=== PATIENT | female | born 1930 | race Caucasian/White ===

== ENCOUNTER 2017-04-24 00:27 | Inpatient (IN) ==
[2017-04-24 02:24] LABS: Basophils % 0.3 % (0.0-0.8); Eosinophils # 0.1 10*3/uL (0.0-0.87); Eosinophils % 1.4 % (0.00-10.9); Hematocrit 35.8 VOL% (35.7-47.0); Hemoglobin 11.7 GM/DL (12.0-16.0); Immature Granulocytes % 0.3 %; Immature Granulocytes Absolute 0.03 #; Lymphocytes # 2.3 10*3/uL (1.4-4.0); Lymphocytes % 25.4 % (21.3-54.2); Mean Corpuscular HGB Conc 32.7 GM/DL (32-36); Mean Corpuscular Hemoglobin 29 PG (27-34); Mean Corpuscular Volume 89.1 FL (87-102); Mean Platelet Volume 11.2 FL (9.6-12.0); Monocytes # 1.1 10*3/uL (0.11-0.8); Monocytes % 11.8 % (1.7-12.7); Neutrophils # 5.5 10*3/uL (1.4-7.4); Neutrophils % 60.8 % (38.7-73.9); Platelet Count 199 T/CUMM (130-400); Red Blood Count 4.02 MC/CUMM (3.8-5.5); Red Cell Distribution Width 14.5 % (9.3-17.3)
[2017-04-24 02:29] LABS: PT Patient Result 10.7 SECS
[2017-04-24 02:41] LABS: Calcium 9.7 MG/DL (8.5-10.1); Osmolality,Calculated 281.4 MOS/KG (273-304)
--- NOTE | 2017-04-24 04:34 | Emergency Department Note ---
Desire Mccullough Hilary, am scribing for, and in the presence of, Shayla Burgos DO 01:50. ILoretta Whitney, DO, personally performed the services described in this documentation, ascribed by Mayra Phipps in my presence, and it is both accurate and complete 245 . Arrival - Arrival Chief Complaint: GI Bleed/Rectal Stated Complaint: rectal bleeding ED Nursing Triage Note: c/c rectal bleeding started tonight. Has had rectal bleeding in past from polyps. Pt states large amounts of bright red blood. Pt states "gushing out" Mode of Arrival: Wheelchair Limitations: No Limitations Source: Patient, RN Notes Reviewed Time Seen by Provider: 04/24/17 01:23 - History of Present Illness HPI Narrative: Pt is a 86 y/o presenting to the ED with c/o GI bleed which onset today. Pt states that she has had 2 episodes of blood in her stool where it is "gushing out" and fills the toilet. She has had this happen before about a year ago and was told that she had a polyp. She confirms hemorrhoids in the past and present , bright red blood in her stool and dizziness but denies vomiting or abdominal pain. No other complaints or problems stated in the ED. Onset (ago): hour(s) Consistency: constant Severity: mild, similar to previous episodes Severity scale (1-10): 1 Allergies/Adverse Reactions: Allergies Allergy/AdvReac Type Severity Reaction Status Date / Time penicillin G Allergy Unknown/Unable Verified 04/24/17 00:41 to obtain Review of System - Review of System 12 point system: reviewed and no additional remarkable complaints except as stated - Review of System Constitutional: Present: weakness, other (Dizziness). Absent: fever Gastrointestinal: Present: hematochezia. Absent: abdominal pain, nausea, vomiting Neurological: Present: weakness Medical,Surgical,& Family Hx - Medical History Cardio: History of: Hypertension Gastrointestinal: History of: Gastrointestinal Bleed, Polyps, GI Problems - Surgical History HEENT Surgeries: Surgical HX of: Tonsilectomy & Adenoidectomy Abdominal Surgeries: Surgical HX of: Cholecystectomy Reproductive Surgeries: Surgical HX of;: Hysterectomy Patient denies;: Breast Surgery - Social History Smoking Status: Current every day smoker Frequency of Alcohol Use: None Type of Drug Use: None Exam Vital Signs: Vital Signs Temperature 99.1 F 04/24/17 00:32 Pulse Rate 90 04/24/17 00:32 Respiratory Rate 18 04/24/17 00:32 Blood Pressure 173/107 04/24/17 00:32 O2 Sat by Pulse Oximetry 94 L 04/24/17 00:32 - General General appearance: alert, in no apparent distress - Head Head exam: Present: atraumatic, normocephalic - Eye Eye exam: Present: normal appearance, PERRL, EOMI - ENT ENT exam: Present: mucous membranes moist, TM's normal bilaterally. Absent: mucous membranes dry - Neck Neck exam: Present: full ROM, trachea midline. Absent: tenderness - Chest Chest inspection: Present: symmetric chest wall rise. Absent: tenderness - Respiratory Respiratory exam: Present: wheezes (bilateral) - Cardiovascular Cardiovascular exam: Present: regular rate, normal rhythm, normal heart sounds. Absent: murmur, rubs, gallop - Abdominal Exam Abdominal exam: Present: soft, tenderness (diffusely), normal bowel sounds. Absent: distention - Rectal Exam Rectal exam: Present: heme (+) stool, bloody stool (grossly maroon blood on finger), other (internal and external hemorrhoids noted) - Extremities Exam Extremities exam: Present: full ROM. Absent: tenderness - Back Exam Back exam: Present: full ROM. Absent: tenderness - Neurological Exam Neurological exam: Present: alert, oriented X3, CN II-XII intact. Absent: motor sensory deficit - Psychiatric Psychiatric exam: Present: normal affect, normal mood - Skin Skin exam: Present: warm, dry, intact, normal color. Absent: rash Course Course Narrative: Gi bleed, suspect internal hemorrhoids. H&H is stable as is patient's vitals. Will call for admission and possible scope in AM. Results - Labs CBC & BMP: 04/24/17 01:53 04/24/17 01:53 Lab Results: I have reviewed the patients labs Labs: Laboratory Tests 04/24/17 04/24/17 01:53 01:53 WBC 9.0 RBC 4.02 Hgb 11.7 L Hct 35.8 Plt Count 199 Caroline # (Auto) 1.1 H INR 1.0 PT Patient/Control Mix 10.7 Laboratory Tests 04/24/17 01:53 Sodium 140 Potassium 4.0 Chloride 104 Carbon Dioxide 29 BUN 17 BUN/Creatinine Ratio 21.00 H Glucose 109 H Disposition Clinical Impression: Lower gastrointestinal hemorrhage Case discussed with: patient Disposition: Still a Patient Condition: Stable
[2017-04-24] MEDS ORDERED: ONDANSETRON 4 MG/2 ML VIAL IV PRN (05:22)
--- NOTE | 2017-04-24 05:30 | Hospitalist History & Physical ---
Assessment and Plan (1) Rectal bleeding Status: Acute Assessment and plan: Patient had a painless rectal bleed could be internal hemorrhoid/ diverticulosis. Will get a repeat hemoglobin hematocrit and consult GI Current Visit: Yes (2) Hypertension Status: Chronic Assessment and plan: Blood pressure is not controlled. Patient has been noncompliant to medications I have written the prescription for amlodipine 5 mg daily home medication to be identified monitor blood pressure. Blood pressure medicine to be hold if her pressure has been low normal as I am afraid with the bleeding she may become hypotensive. Current Visit: Yes (3) Dyslipidemia Status: Chronic Assessment and plan: Patient has history of dyslipidemia is not on any medications. I will order the morning labs and have hospitalist follow on lab work Current Visit: Yes History of Present Illness Chief complaint: Rectal bleed History of present illness: Ms. Bhatia is a 86 year old female with history of hypertension and dyslipidemia she came to the emergency room because of his starting that complete last night. According to patient about 10:00 last night she had noticed some bleeding per rectum without any abdominal pain or rectal pain. She just feels like having gas and bowel movement and passed fresh blood. No nausea vomiting diarrhea no constipation. She just feels a little bit dizzy or lightheaded. She had a colonoscopy about a year ago and was told to have polyp. At that time she required blood transfusion also. She otherwise has been healthy in drive and an independent. She does not have much medical problem except for hypertension for which she takes some medication but do not know the name. She has actually cut down the dose to half because it causes her to have diarrhea. She also was on cholesterol medication but has stopped Allergies Allergy/AdvReac Type Severity Reaction Status Date / Time penicillin G Allergy Unknown/Unable Verified 04/24/17 00:41 to obtain Medical,Surgical,& Family Hx - Medical History Cardio: History of: Hypertension Endocrine: History of: Dyslipidemia Gastrointestinal: History of: Gastrointestinal Bleed, Polyps, GI Problems - Surgical History HEENT Surgeries: Surgical HX of: Tonsilectomy & Adenoidectomy Abdominal Surgeries: Surgical HX of: Cholecystectomy Reproductive Surgeries: Surgical HX of;: Hysterectomy Patient denies;: Breast Surgery - Social History Smoking Status: Current every day smoker (1 pack a day) Frequency of Alcohol Use: None Type of Drug Use: None Review of systems: Comprehensive review of system was done and negative unless indicated above in HPI Exam - Constitutional Vitals: Period Temp Pulse Resp BP Sys/Bangura Pulse Ox Last 24 Hr 99.1 F-99.1 F 90-90 16-18 173-173/103-107 94 General appearance: normal weight, no acute distress - Head Head exam: Present: normal inspection, normocephalic, atraumatic - Eye Eye exam: Present: EOMI. Absent: conjunctival injection, nystagmus Pupils: Present: JOSEFINA, normal accommodation - ENT ENT exam: Present: normal exam, normal oropharynx - Neck Neck exam: Present: normal inspection (Supple), other - Respiratory Respiratory exam: Present: clear to auscultation bilaterally. Absent: rales, rhonchi, wheezes - Cardiovascular Cardiovascular exam: Present: regular rate and rhythm. Absent: tachycardia - GI/Abdominal GI/Abdominal exam: Present: normal bowel sounds, soft. Absent: distended, tenderness - Extremities Exam Extremities exam: Present: normal inspection. Absent: edema - Neurological Exam Neurological exam: Present: alert, oriented X3, other (No gross deficit) - Psychiatric Psychiatric exam: Present: normal affect - Skin Skin exam: Present: normal color Results - Labs CBC & BMP: 04/24/17 01:53 04/24/17 01:53 Lab Results: I have reviewed the past 24 hour labs
[2017-04-24 06:56] LABS: Hematocrit 36.3 VOL% (35.7-47.0); Hemoglobin 11.9 GM/DL (12.0-16.0)
[2017-04-24] MEDS: amLODIPine 5 MG TABLET PO SCH (09:55)
--- NOTE | 2017-04-24 10:44 | Hospitalist Progress Note ---
Assessment and Plan (1) Rectal bleeding Status: Acute Assessment and plan: Impression: 1. Rectal bleeding history suggestive of diverticular bleed 2. Hypertension Plan: Await GI evaluation This note was completed using [employer] voice recognition software. There may be hand slitter errors as a result. Current Visit: Yes Hospitalist: Subjective Interval history: Follow-up GI bleed. The patient reports another episode of rectal bleeding after admission to the room. She says that the bleeding is painless, and she just looks down and sees a commode full of blood. She says that a similar series of events happened last year, and she was told that she had a bleeding polyp in her colon. Exam - Constitutional Vitals: Period Temp Pulse Resp BP Sys/Bangura Pulse Ox Last 24 Hr 97.6 F-99.1 F 87-105 14-22 133-173/77-107 94-96 Vital signs are noted above. Heart is regular with a 2/6 systolic murmur or gallop. Lungs are fairly clear with an occasional expiratory wheeze. Abdomen is soft with no mass or tenderness. She is awake and alert. Results - Labs CBC & BMP: 04/24/17 06:32 04/24/17 01:53 Lab Results: I have reviewed the past 24 hour labs Quality Measures - VTE Contraindication to Pharmacological VTE Prophylaxis: Active Bleeding - Stroke Symptom Onset Unknown: No
[2017-04-24] MEDS ORDERED: SODIUM CHLORIDE 0.9% 250 ML IV PRN (15:20)
--- NOTE | 2017-04-24 15:29 | Gastrointestinal Consult Note ---
Assessment and Plan (1) Rectal bleeding Status: Acute Assessment and plan: The patient has both bright red blood per rectum and maroon complements to her stool. She also has large external hemorrhoids small internal hemorrhoids which very well may be the source of her bleeding. She has a previous history of dropping her hematocrit all the way down to 23% which is not occurred up to this point, at least on this admission. I have written some transfusion parameters for this patient to keep this from occurring again. We will continue to flush her using MiraLAX 3 times daily. I have asked interventional radiology for a tagged red blood cell scan to be done tonight to see if we can identify the source of the bleed. I believe this will be negative at this is just a hemorrhoidal bleed however this may also demonstrate a eating source in the descending versus sigmoid which would help make the diagnosis for future episodes. Ultimately we can consider colonoscopy repeat however these episodes tend to be few and far between, and so is unlikely to warrant surgery. Current Visit: Yes (2) Acute posthemorrhagic anemia Status: Acute Assessment and plan: The patient is due to get a tagged red blood cell scan tonight, depending on the results of this we may want to schedule her for a colonoscopy versus referral to surgery versus continued observation. The patient's symptoms are certainly not in line with the amount of pain one would have from ischemic colitis. She has already undergone colonoscopy back in 2013 and is not time to repeat this. The colonoscopy did not demonstrate a clear bleeding source but hinted towards the left side of diverticulitis as a potential source. Current Visit: Yes (3) Diverticulosis Status: Acute Assessment and plan: Repeat colonoscopy is not going to be needed until January 2024. Current Visit: Yes History of Present Illness Chief complaint: Rectal bleeding with minimal change in the patient's hematocrit. History of present illness: Ms. Bhatia is a 86 year old female who had a history of previous dark stools back in January 2014, at that time her situation was slightly different than now as her hematocrit dropped down to 23% and her stools were vacillating between maroon and bright red. She underwent upper endoscopy which was done by Dr. Gaitan on 01/26/14 which demonstrated that the patient has had a previous common bile duct resection with an opening of a choledochoduodenostomy into the proximal duodenum years before. There did not appear to be any blood in the upper GI tract. There were no ulcers or other cause for bleeding seen. The patient ended up undergoing prep and colonoscopy which occurred on 01/30/14 some 4 days later. The bleeding had discontinued at that point and the colonoscopy demonstrated left-sided diverticulosis only this was quite extensive in the descending and sigmoid region and again no bleeding was seen and the bleeding was attributed to these diverticuli in the left colon. The patient did well for these intervening several years and returns again with 1 day of bright red blood mixed with some maroon stools and some fairly sizable internal and external hemorrhoids on palpation which may be the source of the bleeding at this time as her hematocrit does not drop as profusely as she had seen with a diverticular bleed encountered in January 2014. She is not having any particular abdominal cramping. She states that she does have some sensation of mild constipation followed by a "purge" when she finally does have a bowel movement. Her appetite is generally good she does not have reflux symptoms there is no family history of colon cancer polyps that she knows of. Allergies Allergy/AdvReac Type Severity Reaction Status Date / Time penicillin G Allergy Unknown/Unable Verified 04/24/17 00:41 to obtain Medical,Surgical,& Family Hx - Medical History Cardio: History of: Hypertension Endocrine: History of: Dyslipidemia Gastrointestinal: History of: Gastrointestinal Bleed, Polyps, GI Problems - Surgical History Thoracic Surgeries: Patient denies;: Lobectomy HEENT Surgeries: Surgical HX of: Tonsilectomy & Adenoidectomy Abdominal Surgeries: Surgical HX of: Cholecystectomy Reproductive Surgeries: Surgical HX of;: Hysterectomy Patient denies;: Breast Surgery - Family History Family History: Reports;: Family Cancer, Family Hypertension - Social History Smoking Status: Current every day smoker Frequency of Alcohol Use: None Type of Drug Use: None Review of systems: Constitutional: Denies fever, chills, nausea, and vomiting Eyes: Denies dry eyes, and scleral icterus HENT: Denies headaches Cardiovascular: Denies acute chest pain and claudication Respiratory: Denies shortness of breath, wheezing, and difficulty breathing, but does admit to some cough with her smoking history. Gastrointestinal: As noted in the HPI Genitourinary: Denies dysuria and hematuria Neurologic: Denies vision loss, and loss of sensation Musculoskeletal: She does admit to some, joint stiffness, and muscular weakness but no joint swelling. Psychiatric: Denies depression and elise symptoms Heme-Lymph: Denies easy bruising, lymph node enlargement or tenderness, night sweats, excessive bleeding Allergies-immunologic: Denies pruritus and rhinorrhea Exam - Constitutional Vitals: Period Temp Pulse Resp BP Sys/Bangura Pulse Ox Last 24 Hr 97.6 F-99.1 F 87-105 14-22 123-173/73-107 83-96 Exam: Constitutional: Well-developed, well-nourished, alert, and in no acute distress Head and face: Head: Normocephalic atraumatic Eyes: Conjunctiva without injection, no gross scleral icterus, pupils equal and round bilaterally Ears: Intact to conversation in both ears Nose: External appearance is normal, nares patent Mouth: Oral mucous membranes moist without erythema dentition noted to be without erosion Neck: Normal appearance, no masses or tenderness, trachea midline Thyroid: Gland midline and appropriate size for age Respiratory: Normal respiratory effort, clear to auscultation without wheezes, rhonchi or rales Cardiovascular: Regular rate and rhythm, normal S1, S2, the exam is without rubs, murmurs or gallops. Gastrointestinal: Nontender to palpation, normal active bowel sounds, tone normal without rigidity or guarding, no masses present, no hepatomegaly, no spleen tip felt. Rectal examination shows grade 4 external hemorrhoids and grade 3 internal hemorrhoids, sphincter with excessive tone, there is a large amount of bright red blood mixed with small amount of maroon stool present thought to be in association with hemorrhoids. Lymphatic: Neck without adenopathy, axilla without lymphadenopathy present Musculoskeletal: Right and left lower extremities without evidence of edema Skin and subcutaneous tissue: No rashes or ulcerations noted, normal skin turgor, digits and nails without clubbing/cyanosis/deformities. Neurologic: The patient is grossly oriented to person place and time, cranial nerves show tongue movements are normal with normal tongue extrusion midline, light touch sensation is intact. Psychiatric: No hallucinations or delusions are present, does not appear depressed Results - Labs CBC & BMP: 04/24/17 06:32 04/24/17 01:53 Quality Measures - VTE Contraindication to Pharmacological VTE Prophylaxis: Active Bleeding - Stroke Symptom Onset Unknown: No
--- NOTE | 2017-04-24 17:59 | Nuclear Medicine Report ---
Exam: NM GI bleeding Date: 04/24/2017 3:17 PM Indication: Bright red blood per rectum with previous negative colon exam 2013. Same history Comparison: None Findings: The patient was given 25 mCi of technetium 99M PYP tagged RBC. Images were obtained for 60 minutes. The liver spleen and kidneys and bladder are unremarkable. No obvious activity present within the bowel to suggest bleeding diaphysis site. Impression: 1. Negative GI bleeding study. PROCEDURE INTERPRETED AT [facility] DEPARTMENT OF RADIOLOGY Final Report Signed by: Dr. Harish Colunga
[2017-04-24 18:30] LABS: Hematocrit 28.9 VOL% (35.7-47.0); Hemoglobin 9.3 GM/DL (12.0-16.0)
[2017-04-24] MEDS: POLYETHYLENE GLYCOL POWDER 17 GM PACK PO SCH (21:46)
[2017-04-25 05:53] LABS: Basophils % 0.5 % (0.0-0.8); Eosinophils # 0.2 10*3/uL (0.0-0.87); Eosinophils % 2.7 % (0.00-10.9); Hematocrit 27.6 VOL% (35.7-47.0); Hemoglobin 8.7 GM/DL (12.0-16.0); Hemoglobin 8.8 GM/DL (12.0-16.0); Immature Granulocytes % 0.3 %; Immature Granulocytes Absolute 0.02 #; Lymphocytes # 2.1 10*3/uL (1.4-4.0); Lymphocytes % 32.9 % (21.3-54.2); Mean Corpuscular HGB Conc 31.9 GM/DL (32-36); Mean Corpuscular Hemoglobin 28 PG (27-34); Mean Corpuscular Volume 88.7 FL (87-102); Mean Platelet Volume 11.3 FL (9.6-12.0); Monocytes # 0.8 10*3/uL (0.11-0.8); Monocytes % 13.5 % (1.7-12.7); Neutrophils # 3.1 10*3/uL (1.4-7.4); Neutrophils % 50.1 % (38.7-73.9); Platelet Count 182 T/CUMM (130-400); Red Blood Count 3.11 MC/CUMM (3.8-5.5); Red Cell Distribution Width 14.6 % (9.3-17.3); White Blood Count 6.2 T/CUMM (4-12)
[2017-04-25 06:32] LABS: Risk Ratio 3.07; VLDL CHOLESTEROL 9.4 MG/DL
[2017-04-25 06:59] LABS: Anisocytosis Slight; Band Neutrophils 2 % (0-10); Eosinophils 4 % (0-10); Hypochromasia 2+; Lymphocytes 29 % (20-55); Microcytosis Slight; Platelet Estimate Normal; Segmented Neutrophils 54 % (50-85); Total Cells Counted 100
--- NOTE | 2017-04-25 09:03 | Gastrointestinal Progress Note ---
Assessment and Plan (1) Rectal bleeding Status: Acute Assessment and plan: This is a patient of Dr. Gaitan'chris. The patient has both bright red blood per rectum and maroon complements to her stool. She also has large external hemorrhoids small internal hemorrhoids which very well may be the source of her bleeding. She has a previous history of dropping her hematocrit all the way down to 23% which is not occurred up to this point, at least on this admission. I have written some transfusion parameters for this patient to keep this from occurring again. We will continue to flush her using MiraLAX 3 times daily. I have asked interventional radiology for a tagged red blood cell scan to be done tonight to see if we can identify the source of the bleed. I believe this will be negative at this is just a hemorrhoidal bleed however this may also demonstrate a eating source in the descending versus sigmoid which would help make the diagnosis for future episodes. Ultimately we can consider colonoscopy repeat however these episodes tend to be few and far between, and so is unlikely to warrant surgery. 04/25/17--The bleeding scan yesterday showed no evidence of active bleeding. And the patient has had a scant amount of blood output from her rectum at this point that I believe is likely due to hemorrhoidal bleeding. I have given this patient a combination of both Anusol HC suppositories for the internal hemorrhoids and rectal cream for the external hemorrhoids. She is on MiraLAX 3 times daily to help keep her bowel movements loose and keep her from straining. Good to advance her diet at this point high fiber and see how she does over the next 24 hours. She is written to get another CBC tomorrow. Dr. Gaitan will be back to resume care for this patient, but if her hematocrit is stable she can likely be discharged tomorrow as well. Current Visit: Yes (2) Acute posthemorrhagic anemia Status: Acute Assessment and plan: The patient is due to get a tagged red blood cell scan tonight, depending on the results of this we may want to schedule her for a colonoscopy versus referral to surgery versus continued observation. The patient's symptoms are certainly not in line with the amount of pain one would have from ischemic colitis. She has already undergone colonoscopy back in 2013 and is not time to repeat this. The colonoscopy did not demonstrate a clear bleeding source but hinted towards the left side of diverticulitis as a potential source. 04/25/17--the patient's hematocrit is dropped down to 27% but is remaining stable at this level. She does not wish to have a repeat colonoscopy as she had had back in 2013. The tagged red blood cell scan as mentioned above is negative for recurrence of bleeding leading me to believe this is mostly hemorrhoidal in nature. See above for plan. I suspect that if she is stable as far as her hematocrit tomorrow she can likely be discharged to home to follow -up with Dr. Gaitan on a as needed basis. The last bleeding episode she dropped down to 23% and this was attributed to left-sided diverticulosis with hemorrhage. Current Visit: Yes (3) Diverticulosis Status: Acute Assessment and plan: Repeat colonoscopy is not going to be needed until January 2024. 04/25/17--As noted above repeat colonoscopy with Dr. Gaitan in January 2024. Current Visit: Yes Gastroenterology - PN: Subj Interval history: Patient is having a little bit of back pain from being in bed. She is passed a small amount of rectal bleeding with her stools but thinks that this is getting better. Her hematocrit had been 35.8 and 36.3 yesterday and in the afternoon dropped down to 28.9 is currently 27.6% this morning. If she remains in this level she can certainly be discharged tomorrow to follow-up with Dr. Gaitan as an outpatient. Exam (Progress Note) - Constitutional Vitals: Period Temp Pulse Resp BP Sys/Bangura Pulse Ox Last 24 Hr 97.8 F-98.6 F 76-90 16-22 103-154/57-74 83-95 General appearance: no acute distress - Head Head exam: Present: normocephalic - Eye Eye exam: Present: EOMI - Respiratory Respiratory exam: Present: clear to auscultation bilaterally - Cardiovascular Cardiovascular exam: Present: regular rate and rhythm - GI/Abdominal GI/Abdominal exam: Present: normal bowel sounds, tenderness (Mild periumbilical tenderness. But no guarding or rebound), soft. Absent: rebound - Extremities Exam Extremities exam: Absent: edema - Back Exam Back exam: Present: normal inspection - Neurological Exam Neurological exam: Present: alert, oriented X3, CN II-XII intact - Psychiatric Psychiatric exam: Present: normal affect, normal mood - Skin Skin exam: Present: warm Results - Labs CBC & BMP: 04/25/17 05:34 04/24/17 01:53
[2017-04-25] MEDS: POLYETHYLENE GLYCOL POWDER 17 GM PACK PO SCH ×3 (09:05→21:11)
[2017-04-25] MEDS: amLODIPine 5 MG TABLET PO SCH (09:06)
--- NOTE | 2017-04-25 10:43 | Hospitalist Progress Note ---
Assessment and Plan (1) Rectal bleeding Status: Acute Assessment and plan: Impression: 1. Rectal bleeding history suggestive of diverticular bleed 2. Hypertension Plan: Continue current care for the GI bleed; no endoscopic evaluation is planned. It appears that she does not need anything for lipid-lowering at this time. She is already on a low-dose of amlodipine for her blood pressure. This note was completed using [employer] voice recognition software. There may be dinkey locomotive engineer errors as a result. Current Visit: Yes Hospitalist: Subjective Interval history: Follow-up rectal bleeding. The patient has not had any further bleeding. GI has seen her, and does not plan on endoscopic evaluation at this time. The patient reports that she is feeling better. She denies any abdominal pain. She is tolerating a diet. She asked me if I would start her on a blood pressure medicine and something for her cholesterol. Exam - Constitutional Vitals: Period Temp Pulse Resp BP Sys/Bangura Pulse Ox Last 24 Hr 97.8 F-98.6 F 76-90 16-22 103-154/57-74 83-95 Heart is regular with a 2/6 systolic murmur. Lungs are clear with no rales or wheezes. Abdomen is soft without any mass or tenderness. She is awake and alert. Results - Labs CBC & BMP: 04/25/17 05:34 04/24/17 01:53 Lab Results: I have reviewed the past 24 hour labs (Lipid panel looks good.) Quality Measures - VTE Contraindication to Pharmacological VTE Prophylaxis: Active Bleeding - Stroke Symptom Onset Unknown: No
[2017-04-25 15:27] LABS: Hematocrit 28.6 VOL% (35.7-47.0); Hemoglobin 9.2 GM/DL (12.0-16.0)
[2017-04-25] MEDS: HYDROCORTISONE 2.5% RECTAL CREAM 30 GM TUBE TOP PRN (16:23)
[2017-04-25] MEDS: HYDROCORTISONE 25 MG SUPP RECTAL SCH (21:11)
[2017-04-26 06:20] LABS: Basophils % 0.5 % (0.0-0.8); Eosinophils # 0.1 10*3/uL (0.0-0.87); Eosinophils % 2.5 % (0.00-10.9); Hematocrit 26.4 VOL% (35.7-47.0); Hemoglobin 8.4 GM/DL (12.0-16.0); Immature Granulocytes % 0.2 %; Immature Granulocytes Absolute 0.01 #; Lymphocytes # 2.6 10*3/uL (1.4-4.0); Lymphocytes % 46.5 % (21.3-54.2); Mean Corpuscular HGB Conc 31.8 GM/DL (32-36); Mean Corpuscular Hemoglobin 28 PG (27-34); Mean Corpuscular Volume 88.6 FL (87-102); Mean Platelet Volume 11.7 FL (9.6-12.0); Monocytes # 0.8 10*3/uL (0.11-0.8); Monocytes % 13.6 % (1.7-12.7); Neutrophils # 2.1 10*3/uL (1.4-7.4); Neutrophils % 36.7 % (38.7-73.9); Platelet Count 181 T/CUMM (130-400); Red Blood Count 2.98 MC/CUMM (3.8-5.5); Red Cell Distribution Width 14.4 % (9.3-17.3); White Blood Count 5.7 T/CUMM (4-12)
[2017-04-26 06:43] LABS: Hypochromasia 1+; Ovalocytes Slight
[2017-04-26 06:44] LABS: Microcytosis Slight; Platelet Estimate Normal
[2017-04-26] MEDS: amLODIPine 5 MG TABLET PO SCH (09:39)
[2017-04-26] MEDS: POLYETHYLENE GLYCOL POWDER 17 GM PACK PO SCH ×2 (09:42→14:53)
[2017-04-26] MEDS: HYDROCORTISONE 25 MG SUPP RECTAL SCH ×2 (09:45→21:14)
--- NOTE | 2017-04-26 10:29 | Gastrointestinal Progress Note ---
Assessment and Plan (1) Rectal bleeding Status: Acute Assessment and plan: 04/26-sudden onset 2 days ago of bright red rectal bleeding without abdominal pain. Prior history of GI bleeding and diverticulosis to left colon. Hemoglobin has trended down slowly now holding at 8.4. Continue to monitor H&H at this time. Plan an addendum to followed by Dr. Gaitan. Current Visit: Yes Gastroenterology - PN: Subj Interval history: CC: GI bleed Patient is seen, awake and alert. States she is feeling a little better today. She states her last episode of bleeding was last night with a bowel movement. She has had no further bleeding this morning. Denies any abdominal pain. She was noted on admission to have a bleeding scan which also was negative. Patient is noted on admission on 04/24 to have a hemoglobin of 9.3 which has trended downward today at 8.4. She states she has not had a bowel movement this morning and is waiting to do so. She brought forth that she however is unable to have a bowel movement unless she does digital stimulation since her prior surgical history in which she states her gallbladder was removed and she recalls some complications postsurgical that she relates to her chronic constipation issues. Her last colonoscopy was in 2013 after inpatient stay for GI bleeding in which she was found to have left colon diverticulosis as well as internal hemorrhoids. She states that this bleeding feels very similar to that as well. Abdomen soft, nontender. She is tolerating a regular diet at this time and is anxious to be discharged home. ROS: Denies shortness of breath or chest pain Exam (Progress Note) - Constitutional Vitals: Period Temp Pulse Resp BP Sys/Bangura Pulse Ox Last 24 Hr 97.3 F-98.2 F 67-80 16-22 117-136/60-77 93-100 General appearance: normal weight, no acute distress - Head Head exam: Present: normal inspection, normocephalic - Eye Eye exam: Present: other (Lids and conjunctivae are unremarkable). Absent: scleral icterus - ENT ENT exam: Present: normal exam, normal oropharynx - Neck Neck exam: Present: normal inspection - Respiratory Respiratory exam: Present: clear to auscultation bilaterally. Absent: rales, rhonchi, wheezes - Cardiovascular Cardiovascular exam: Present: regular rate and rhythm. Absent: diastolic murmur , JVD, systolic murmur - GI/Abdominal GI/Abdominal exam: Present: normal bowel sounds, soft. Absent: ascites, distended, mass, organomegaly, tenderness - Extremities Exam Extremities exam: Present: normal inspection, full ROM - Back Exam Back exam: Present: normal inspection - Neurological Exam Neurological exam: Present: alert, oriented X3 - Psychiatric Psychiatric exam: Present: normal affect, normal mood - Skin Skin exam: Present: normal color, warm, dry Results - Labs CBC & BMP: 04/26/17 05:39 04/24/17 01:53 Lab Results: I have reviewed the past 24 hour labs - Diagnostic Findings Procedure: CT Abdomen and Pelvis: report reviewed by me
[2017-04-26 17:18] LABS: Hematocrit 28.7 VOL% (35.7-47.0); Hemoglobin 9.1 GM/DL (12.0-16.0)
--- NOTE | 2017-04-26 20:37 | Hospitalist Progress Note ---
Assessment and Plan (1) Lower gastrointestinal hemorrhage Status: Acute Assessment and plan: From diverticulosis this has improved Current Visit: Yes (2) Acute posthemorrhagic anemia Status: Acute Assessment and plan: Monitoring hematocrit as it was a slow decline Current Visit: Yes Hospitalist: Subjective Interval history: Patient was admitted with bright red rectal bleeding without abdominal pain. Prior history of GI bleeding and diverticulosis to left colon. Exam - Constitutional Vitals: Period Temp Pulse Resp BP Sys/Bangura Pulse Ox Last 24 Hr 97.3 F-98.2 F 67-78 16-22 117-141/66-77 94-100 General appearance: no acute distress - Head Head exam: Present: normocephalic, atraumatic - Eye Eye exam: Present: EOMI Pupils: Present: JOSEFINA - ENT ENT exam: Present: normal exam - Respiratory Respiratory exam: Present: clear to auscultation bilaterally - Cardiovascular Cardiovascular exam: Present: regular rate and rhythm - GI/Abdominal GI/Abdominal exam: Present: normal bowel sounds - Extremities Exam Extremities exam: Present: normal inspection, normal capillary refill - Neurological Exam Neurological exam: Present: alert, oriented X3 - Psychiatric Psychiatric exam: Present: normal affect, normal mood - Skin Skin exam: Present: warm, dry Results - Labs CBC & BMP: 04/26/17 16:38 04/24/17 01:53 Quality Measures - VTE Contraindication to Pharmacological VTE Prophylaxis: Active Bleeding - Stroke Symptom Onset Unknown: No
[2017-04-26] MEDS: HYDROCORTISONE 2.5% RECTAL CREAM 30 GM TUBE TOP PRN (21:15)
[2017-04-27 06:25] LABS: Basophils % 0.7 % (0.0-0.8); Eosinophils # 0.2 10*3/uL (0.0-0.87); Eosinophils % 2.8 % (0.00-10.9); Hemoglobin 8.3 GM/DL (12.0-16.0); Immature Granulocytes % 0.2 %; Immature Granulocytes Absolute 0.01 #; Lymphocytes # 2.1 10*3/uL (1.4-4.0); Lymphocytes % 34.8 % (21.3-54.2); Mean Corpuscular HGB Conc 31.9 GM/DL (32-36); Mean Corpuscular Hemoglobin 29 PG (27-34); Mean Corpuscular Volume 89.3 FL (87-102); Mean Platelet Volume 11.7 FL (9.6-12.0); Monocytes # 0.7 10*3/uL (0.11-0.8); Monocytes % 12.1 % (1.7-12.7); Neutrophils % 49.4 % (38.7-73.9); Platelet Count 181 T/CUMM (130-400); Red Blood Count 2.91 MC/CUMM (3.8-5.5); Red Cell Distribution Width 14.4 % (9.3-17.3)
[2017-04-27] MEDS ORDERED: POLYETHYLENE GLYCOL POWDER 17 GM PACK PO SCH (09:00)
[2017-04-27] MEDS: amLODIPine 5 MG TABLET PO SCH (10:21)
[2017-04-27 12:01] VITALS: BP 116/89
[2017-04-27] MEDS: HYDROCORTISONE 25 MG SUPP RECTAL SCH (13:20)
--- NOTE | 2017-04-27 14:32 | Discharge Summary ---
Hospital Course - Hospital Course Hospital Course: 83 year old white female who has had bright red blood per rectum over 3-4 weeks. She denied any abdominal pain, fever, chills chest pain, shortness breath, palpitations, syncope or presyncope, painful bowel movements, diarrhea, melena, hematemesis. She has had some intermittent nausea without vomiting. She also had constipation. She presented to the emergency room and was evaluated and found to be Hemoccult positive but otherwise hemodynamically stable. Dr. Lopez was contacted by the nurse practitioner in nonurgent care and his recommendations were adhered to. She did have a CT of the abdomen and pelvis in the emergency room and received Ativan for anxiety. Patient's primary care provider is Dr. Heather Bansal. Pt had sudden onset 2 days ago of bright red rectal bleeding without abdominal pain. Prior history of GI bleeding and diverticulosis to left colon. She had anemia of acute GI blood loss but did not require any blood transfusion. Her lower GI bleed stopped spontaneously and was felt to be diverticular bleed. She has no further recurrence of bleed. She had previous colonoscopy in 2013 that revealed diverticulosis. Since her GI bleed resolved spontaneously, a colonoscopy was not performed. Patient is now reached maximal hospital benefit and is being discharged home in improved stable and stable condition. She was advised to call 911 for any further recurrent bleeding. - Time spent with patient Time with patient DS: Less than 30 minutes Diagnosis - Discharge Diagnosis (1) Lower gastrointestinal hemorrhage Status: Resolved (2) Acute posthemorrhagic anemia Status: Resolved Discharge Plan - Discharge Data Discharge Diet: advance to your usual diet Activity: resume usual activities as tolerated Hygiene: no restrictions, may shower Weight Bearing at Discharge: full weight bearing - Discharge Medications New Hydrocortisone (Anusol-Hc) Sup [Anusol HC Supp] 25 mg RECTAL BID #20 supp Hydrocortisone 2.5% Rectal Cr [Anusol HC Cream] 1 applic TOP QID PRN #1 applic PRN Reason: Hemorrhoids Polyethylene Glycol Powder [Miralax] 17 gm PO DAILY #1 amLODIPine [Norvasc] 5 mg PO DAILY #30 tablet - Follow Up or Referral - Forms/Instructions Exam - Constitutional Vitals: Period Temp Pulse Resp BP Sys/Bangura Pulse Ox Last 24 Hr 97.2 F-98.5 F 73-80 16-22 116-142/58-89 94-100 General appearance: no acute distress - Head Head exam: Present: normal inspection, normocephalic, atraumatic - Eye Eye exam: Present: EOMI Pupils: Present: JOSEFINA - ENT ENT exam: Present: normal exam - Respiratory Respiratory exam: Present: clear to auscultation bilaterally - GI/Abdominal GI/Abdominal exam: Present: normal bowel sounds, soft - Neurological Exam Neurological exam: Present: alert, oriented X3 Discharge Results Labs on day of discharge: Labs from last 24 hours 04/27/17 04/26/17 05:53 16:38 WBC 6.0 RBC 2.91 L Hgb 8.3 L 9.1 L Hct 26.0 L 28.7 L MCV 89.3 MCH 29 MCHC 31.9 L RDW 14.4 Plt Count 181 MPV 11.7 Neut % (Auto) 49.4 Lymph % (Auto) 34.8 Johnson % (Auto) 12.1 Eos % (Auto) 2.8 Baso % (Auto) 0.7 Neut # (Auto) 3.0 Lymph # (Auto) 2.1 Johnson # (Auto) 0.7 Eos # (Auto) 0.2 Baso # (Auto) 0.0 Immature Gran % 0.2 Nucleated RBC % 0.0 Immature Gran # 0.01 Nucleated RBCs # 0.00 DS: Provider Date of admission: 04/24/17 05:22 Primary care physician: . No PCP Attending physician on admission: Herbert Ramirez MD Consults: 04/24/17 05:22 Consult to Physician [CONS] Routine Comment: Rectal bleeding Consulting Provider: Harish Gaitan Consulting Provider Notified: Yes Consult to Specialist Group: Gastroenterology When should Consulting Provider be notified: In am Person Notified: Dr. Lopez Date Notified: 04/24/17 Time Notified: 08:04 04/24/17 06:47 Consult to Dietitian [CONS] Routine Reason for Dietitian: Other Consult Comment: admission assessment Discharging clinician: Bharat Panchal MD
== END 2017-04-27 14:24 | disposition home or self-care (01) | DRG 378 ==
LOC: N.ED 00:27 → N.EDINP 05:22 → SUATTDRO 05:22 → N.2E 05:46
PROVIDERS: ADMIT Internal Medicine; ATTEND Hospitalist

== ENCOUNTER 2020-08-12 17:08 | Inpatient (IN) ==
[2020-08-12] MEDS ORDERED: ALUM/MAG/SIMETH/LIDO VISC 1:1 30 ML BOTTLE PO STA (18:32)
[2020-08-12] MEDS ORDERED: PANTOPRAZOLE 40 MG VIAL IV STA (18:32)
[2020-08-12] MEDS ORDERED: HYDROmorphone 2 MG/1 ML VIAL IV STA (18:32)
[2020-08-12] MEDS ORDERED: SODIUM CHLORIDE 0.9% 500 ML IV STA (18:32)
[2020-08-12] MEDS ORDERED: ONDANSETRON 4 MG/2 ML VIAL IV STA (18:32)
[2020-08-12 18:52] LABS: Alanine Aminotransferase 58 U/L (13-56); Albumin 2.3 G/DL (3.4-5.0); Alkaline Phosphatase 495 U/L (45-117); Amylase 43 U/L (25-115); Aspartate Amino Transferase 100 U/L (0-37); Blood Urea Nitrogen 20 MG/DL (7-18); Calcium 8.8 MG/DL (8.5-10.1); Estimated Glom Filtration Rate 45 ML/MIN; Glucose 110 MG/DL (74-106); Osmolality,Calculated 271.2 MOS/KG (273-304); Total Protein 5.9 G/DL (6.4-8.3)
[2020-08-12] MEDS ORDERED: MAGNESIUM SULF RIDER 2 GM in PREMIX 1 EACH IV STA (19:07)
[2020-08-12 20:27] LABS: Basophils % 0.2 % (0.0-0.8); Eosinophils % 0.1 % (0.00-10.9); Hematocrit 23.8 VOL% (35.7-47.0); Hemoglobin 7.8 GM/DL (12.0-16.0); Immature Granulocytes % 0.7 %; Immature Granulocytes Absolute 0.09 #; Lymphocytes # 0.9 10*3/uL (1.4-4.0); Lymphocytes % 6.5 % (21.3-54.2); Mean Corpuscular HGB Conc 32.8 GM/DL (32-36); Mean Corpuscular Volume 81.8 FL (87-102); Mean Platelet Volume 12.5 FL (9.6-12.0); Monocytes % 10.3 % (1.7-12.7); Neutrophils % 82.2 % (38.7-73.9); Platelet Count 378 T/CUMM (130-400); Red Blood Count 2.91 MC/CUMM (3.8-5.5)
[2020-08-12] MEDS ORDERED: GLUCAGON 1 MG VIAL IM PRN (20:45)
[2020-08-12] MEDS ORDERED: DEXTROSE 50% 25 GM/50 ML VIAL IV PRN (20:45)
[2020-08-12] MEDS ORDERED: SODIUM CHLORIDE 0.9% 1,000 ML IV PRN (20:53)
[2020-08-12 21:16] LABS: Bacteria,Urine Occasional /HPF (Few); Bilirubin,Urine Negative (Negative); Blood, Urine Trace mg/dL (Negative); Glucose,Urine (UA) Negative (Negative); Ketones,Urine Negative (Negative); Nitrite,Urine Negative (Negative); Protein,Urine 30 MG/DL; RBC,Urine 3 /HPF (0-4); Squamous Epithelial Cell,Urine Many /HPF (0-10); Urine Appearance Hazy (Clear); Urine Color Amber (Yellow); WBC,Urine 11 /HPF (0-6)
[2020-08-12] MEDS ORDERED: DEXTROSE 50% 25 GM/50 ML SYRINGE IV PRN (22:15)
[2020-08-12] MEDS ORDERED: LEVOFLOXACIN INJ 500 MG in PREMIX 1 EACH IV ONE (22:30)
[2020-08-13] MEDS ORDERED: INFLUENZA VIRUS VACCINE 0.5 ML SYRINGE IM ONE (02:57)
[2020-08-13] MEDS: HYDROmorphone 2 MG/1 ML VIAL IV PRN ×4 (05:32→21:56)
[2020-08-13] MEDS: LACTATED RINGERS 1,000 ML IV SCH (07:59)
[2020-08-13] MEDS ORDERED: LIDOCAINE 2% 5 ML VIAL ONE (09:00)
[2020-08-13] MEDS ORDERED: propofoL 200 MG/20 ML VIAL IV ONE (09:00)
[2020-08-13] MEDS ORDERED: ETOMIDATE 20 MG/10 ML VIAL IV ONE (09:00)
[2020-08-13 09:38] LABS: Basophils % 0.3 % (0.0-0.8); Eosinophils % 0.1 % (0.00-10.9); Hematocrit 31.7 VOL% (35.7-47.0); Immature Granulocytes % 1.1 %; Immature Granulocytes Absolute 0.15 #; Lymphocytes # 1.1 10*3/uL (1.4-4.0); Lymphocytes % 7.8 % (21.3-54.2); Mean Corpuscular HGB Conc 33.4 GM/DL (32-36); Mean Corpuscular Volume 83.6 FL (87-102); Mean Platelet Volume 11.2 FL (9.6-12.0); Monocytes % 12.1 % (1.7-12.7); Neutrophils % 78.6 % (38.7-73.9); Platelet Count 340 T/CUMM (130-400); Red Blood Count 3.79 MC/CUMM (3.8-5.5); Red Cell Distribution Width 16.8 % (9.3-17.3); White Blood Count 14.1 T/CUMM (4-12)
[2020-08-13 09:47] LABS: Hemoglobin 10.6 GM/DL (12.0-16.0)
[2020-08-13 10:00] LABS: INR 1.2; PT Patient Result 12.4 SECS (9.8-11.9)
[2020-08-13 10:05] LABS: Albumin 2.2 G/DL (3.4-5.0); Bilirubin,Total 1.9 MG/DL (0.2-1.0); Calcium 8.6 MG/DL (8.5-10.1); Osmolality,Calculated 268.2 MOS/KG (273-304); Total Protein 6.1 G/DL (6.4-8.3)
[2020-08-13 10:20] LABS: Microcytosis Slight; Schistocytes Slight
[2020-08-13 10:55] LABS: Hypochromasia 3+
[2020-08-13 10:58] LABS: Platelet Estimate Adequate
[2020-08-13] MEDS: LEVOFLOXACIN INJ 250 MG in PREMIX 1 EACH IV SCH (21:39)
[2020-08-14] MEDS: HYDROmorphone 2 MG/1 ML VIAL IV PRN ×3 (01:46→20:59)
[2020-08-14 06:05] LABS: Basophils # 0.1 10*3/uL (0.0-0.2); Basophils % 0.4 % (0.0-0.8); Eosinophils % 0.3 % (0.00-10.9); Hematocrit 31.9 VOL% (35.7-47.0); Hemoglobin 10.5 GM/DL (12.0-16.0); Immature Granulocytes % 1.1 %; Immature Granulocytes Absolute 0.14 #; Lymphocytes # 1.1 10*3/uL (1.4-4.0); Lymphocytes % 8.4 % (21.3-54.2); Mean Corpuscular HGB Conc 32.9 GM/DL (32-36); Mean Corpuscular Volume 84.6 FL (87-102); Mean Platelet Volume 11.4 FL (9.6-12.0); Monocytes % 11.2 % (1.7-12.7); Neutrophils % 78.6 % (38.7-73.9); Platelet Count 329 T/CUMM (130-400); Red Blood Count 3.77 MC/CUMM (3.8-5.5); Red Cell Distribution Width 17.1 % (9.3-17.3)
[2020-08-14 06:21] LABS: Calcium 8.5 MG/DL (8.5-10.1); Osmolality,Calculated 266.4 MOS/KG (273-304)
[2020-08-14] MEDS ORDERED: DIAZEPAM 5 MG TABLET PO ONE (08:00)
[2020-08-14] MEDS: LACTATED RINGERS 1,000 ML IV SCH (12:14)
[2020-08-14] MEDS ORDERED: HYDROCORTISONE 2.5% RECTAL CREAM 30 GM TUBE TOP PRN (20:19)
[2020-08-14] MEDS: ZALEPLON 5 MG CAPSULE PO PRN (20:46)
[2020-08-14] MEDS: LEVOFLOXACIN INJ 250 MG in PREMIX 1 EACH IV SCH (21:33)
[2020-08-15 05:32] LABS: Basophils % 0.3 % (0.0-0.8); Eosinophils # 0.1 10*3/uL (0.0-0.87); Eosinophils % 0.7 % (0.00-10.9); Hematocrit 28.7 VOL% (35.7-47.0); Hemoglobin 9.3 GM/DL (12.0-16.0); Immature Granulocytes % 0.6 %; Immature Granulocytes Absolute 0.07 #; Lymphocytes # 1.2 10*3/uL (1.4-4.0); Lymphocytes % 10.2 % (21.3-54.2); Mean Corpuscular HGB Conc 32.4 GM/DL (32-36); Mean Corpuscular Volume 85.7 FL (87-102); Mean Platelet Volume 10.5 FL (9.6-12.0); Monocytes % 11.3 % (1.7-12.7); Neutrophils % 76.9 % (38.7-73.9); Platelet Count 266 T/CUMM (130-400); Red Blood Count 3.35 MC/CUMM (3.8-5.5); Red Cell Distribution Width 17.6 % (9.3-17.3); White Blood Count 11.5 T/CUMM (4-12)
[2020-08-15 05:53] LABS: Calcium 8.3 MG/DL (8.5-10.1); Osmolality,Calculated 272.1 MOS/KG (273-304)
[2020-08-15] MEDS: HYDROmorphone 2 MG/1 ML VIAL IV PRN ×3 (09:44→23:55)
[2020-08-15] MEDS: ZALEPLON 5 MG CAPSULE PO PRN (20:22)
[2020-08-16] MEDS: HYDROmorphone 2 MG/1 ML VIAL IV PRN ×2 (04:10→19:14)
[2020-08-16 05:42] LABS: Basophils % 0.3 % (0.0-0.8); Eosinophils # 0.1 10*3/uL (0.0-0.87); Eosinophils % 0.4 % (0.00-10.9); Hematocrit 28.4 VOL% (35.7-47.0); Hemoglobin 9.3 GM/DL (12.0-16.0); Immature Granulocytes % 1.2 %; Immature Granulocytes Absolute 0.15 #; Lymphocytes # 1.2 10*3/uL (1.4-4.0); Mean Corpuscular HGB Conc 32.7 GM/DL (32-36); Mean Corpuscular Volume 85.8 FL (87-102); Mean Platelet Volume 11.5 FL (9.6-12.0); Monocytes % 13.4 % (1.7-12.7); Neutrophils % 75.7 % (38.7-73.9); Platelet Count 301 T/CUMM (130-400); Red Blood Count 3.31 MC/CUMM (3.8-5.5); Red Cell Distribution Width 18.5 % (9.3-17.3); White Blood Count 12.7 T/CUMM (4-12)
[2020-08-16 06:06] LABS: Calcium 8.2 MG/DL (8.5-10.1); Osmolality,Calculated 270.1 MOS/KG (273-304)
[2020-08-16] MEDS: LACTATED RINGERS 1,000 ML IV SCH (07:12)
[2020-08-16 08:42] LABS: Albumin 2.1 G/DL (3.4-5.0); Bilirubin,Direct 1.41 MG/DL (0.0-0.20); Bilirubin,Indirect 0.6 MG/DL (0.0-1.0); Total Protein 5.6 G/DL (6.4-8.3)
[2020-08-16] MEDS: NICOTINE 21 MG/24 HR PATCH TRANSDERM SCH (10:21)
[2020-08-16] MEDS: ONDANSETRON 4 MG/2 ML VIAL IV PRN (19:13)
[2020-08-16] MEDS: ZALEPLON 5 MG CAPSULE PO PRN (21:01)
[2020-08-17] MEDS: ONDANSETRON 4 MG/2 ML VIAL IV PRN (02:21)
[2020-08-17] MEDS: HYDROmorphone 2 MG/1 ML VIAL IV PRN ×4 (02:22→19:09)
[2020-08-17 06:39] LABS: Basophils % 0.3 % (0.0-0.8); Eosinophils # 0.1 10*3/uL (0.0-0.87); Eosinophils % 0.4 % (0.00-10.9); Hematocrit 28.9 VOL% (35.7-47.0); Hemoglobin 9.4 GM/DL (12.0-16.0); Immature Granulocytes % 1.4 %; Lymphocytes # 1.7 10*3/uL (1.4-4.0); Lymphocytes % 12.1 % (21.3-54.2); Mean Corpuscular HGB Conc 32.5 GM/DL (32-36); Mean Corpuscular Volume 86.8 FL (87-102); Mean Platelet Volume 11.8 FL (9.6-12.0); Monocytes % 11.4 % (1.7-12.7); Neutrophils % 74.4 % (38.7-73.9); Platelet Count 307 T/CUMM (130-400); Red Blood Count 3.33 MC/CUMM (3.8-5.5); Red Cell Distribution Width 18.7 % (9.3-17.3); White Blood Count 14.1 T/CUMM (4-12)
[2020-08-17 06:40] LABS: Albumin 2.1 G/DL (3.4-5.0); Bilirubin,Total 3.3 MG/DL (0.2-1.0); Calcium 8.4 MG/DL (8.5-10.1); Osmolality,Calculated 266.2 MOS/KG (273-304); Total Protein 5.6 G/DL (6.4-8.3)
[2020-08-17] MEDS: NICOTINE 21 MG/24 HR PATCH TRANSDERM SCH (08:12)
[2020-08-17] MEDS: LACTATED RINGERS 1,000 ML IV SCH (13:05)
[2020-08-17] MEDS: ZALEPLON 5 MG CAPSULE PO PRN (20:48)
[2020-08-18] MEDS: ONDANSETRON 4 MG/2 ML VIAL IV PRN ×2 (03:29→06:21)
[2020-08-18] MEDS: HYDROmorphone 2 MG/1 ML VIAL IV PRN ×5 (03:30→21:39)
[2020-08-18] MEDS: NICOTINE 21 MG/24 HR PATCH TRANSDERM SCH (09:32)
[2020-08-18] MEDS: LACTATED RINGERS 1,000 ML IV SCH (09:41)
[2020-08-18] MEDS: SULFAMETHOX/TRIMETHOPRIM 800-160 MG TABLET PO SCH ×2 (15:06→21:39)
[2020-08-18] MEDS: ZALEPLON 5 MG CAPSULE PO PRN (23:13)
[2020-08-19 06:09] LABS: Basophils % 0.4 % (0.0-0.8); Eosinophils % 0.4 % (0.00-10.9); Hematocrit 29.1 VOL% (35.7-47.0); Hemoglobin 9.4 GM/DL (12.0-16.0); Immature Granulocytes % 0.8 %; Immature Granulocytes Absolute 0.09 #; Lymphocytes % 8.5 % (21.3-54.2); Mean Corpuscular HGB Conc 32.3 GM/DL (32-36); Mean Corpuscular Volume 87.4 FL (87-102); Mean Platelet Volume 11.9 FL (9.6-12.0); Monocytes % 14.1 % (1.7-12.7); Neutrophils % 75.8 % (38.7-73.9); Platelet Count 285 T/CUMM (130-400); Red Blood Count 3.33 MC/CUMM (3.8-5.5); Red Cell Distribution Width 19.8 % (9.3-17.3); White Blood Count 11.4 T/CUMM (4-12)
[2020-08-19] MEDS: ONDANSETRON 4 MG/2 ML VIAL IV PRN (06:18)
[2020-08-19] MEDS: HYDROmorphone 2 MG/1 ML VIAL IV PRN ×2 (06:19→10:36)
[2020-08-19 06:32] LABS: Calcium 8.7 MG/DL (8.5-10.1); Osmolality,Calculated 266.4 MOS/KG (273-304)
[2020-08-19] MEDS: LACTATED RINGERS 1,000 ML IV SCH (08:29)
[2020-08-19] MEDS: SULFAMETHOX/TRIMETHOPRIM 800-160 MG TABLET PO SCH (08:30)
[2020-08-19] MEDS: NICOTINE 21 MG/24 HR PATCH TRANSDERM SCH (08:30)
[2020-08-19 12:07] VITALS: BP 152/71
== END 2020-08-19 14:30 | disposition home health service (06) | DRG 435 ==
LOC: N.ED 17:08 → SUATTDRO 20:45 → N.EDINP 20:45 → N.3E 22:20
PROVIDERS: ADMIT Family Medicine; ATTEND Internal Medicine

== ENCOUNTER 2020-08-21 14:03 | Inpatient (IN) ==
[2020-08-21] MEDS ORDERED: ONDANSETRON 4 MG/2 ML VIAL IV STA (14:45)
[2020-08-21] MEDS ORDERED: ONDANSETRON 4 MG/2 ML VIAL ONE (14:50)
[2020-08-21] MEDS: HYDROmorphone 2 MG/1 ML VIAL IV PRN ×2 (14:53→19:41)
[2020-08-21 16:05] LABS: Basophils % 0.2 % (0.0-0.8); Eosinophils % 0.1 % (0.00-10.9); Hematocrit 27.8 VOL% (35.7-47.0); Hemoglobin 9.4 GM/DL (12.0-16.0); Immature Granulocytes Absolute 0.13 #; Lymphocytes # 0.8 10*3/uL (1.4-4.0); Lymphocytes % 6.3 % (21.3-54.2); Mean Corpuscular HGB Conc 33.8 GM/DL (32-36); Mean Corpuscular Volume 84.8 FL (87-102); Mean Platelet Volume 11.3 FL (9.6-12.0); Monocytes % 10.2 % (1.7-12.7); Neutrophils % 82.2 % (38.7-73.9); Platelet Count 370 T/CUMM (130-400); Red Blood Count 3.28 MC/CUMM (3.8-5.5); White Blood Count 13.1 T/CUMM (4-12)
[2020-08-21 16:11] LABS: Albumin 2.2 G/DL (3.4-5.0); Bilirubin,Total 5.5 MG/DL (0.2-1.0); Calcium 8.9 MG/DL (8.5-10.1); Osmolality,Calculated 264.4 MOS/KG (273-304)
[2020-08-21] MEDS ORDERED: DEXTROSE 50% 25 GM/50 ML VIAL IV PRN (16:57)
[2020-08-21] MEDS ORDERED: ONDANSETRON 4 MG/2 ML VIAL IV PRN (16:57)
[2020-08-21] MEDS ORDERED: GLUCAGON 1 MG VIAL IM PRN (16:57)
[2020-08-21] MEDS: SODIUM CHLORIDE 0.9% 1,000 ML IV SCH (19:40)
[2020-08-21] MEDS: SPIRONOLACTONE 25 MG TABLET PO SCH (20:15)
[2020-08-21] MEDS: SULFAMETHOX/TRIMETHOPRIM 800-160 MG TABLET PO SCH (20:15)
[2020-08-21] MEDS: LACTULOSE 20 GM/30 ML UDCUP PO SCH (20:16)
[2020-08-21] MEDS: ENOXAPARIN 40 MG/0.4 ML SYRINGE SUBCUT SCH (20:16)
[2020-08-22] MEDS: HYDROmorphone 2 MG/1 ML VIAL IV PRN ×4 (04:26→21:47)
[2020-08-22 05:29] LABS: Basophils % 0.4 % (0.0-0.8); Eosinophils % 0.4 % (0.00-10.9); Hematocrit 28.1 VOL% (35.7-47.0); Hemoglobin 9.4 GM/DL (12.0-16.0); Immature Granulocytes % 0.9 %; Lymphocytes # 1.2 10*3/uL (1.4-4.0); Lymphocytes % 10.8 % (21.3-54.2); Mean Corpuscular HGB Conc 33.5 GM/DL (32-36); Mean Corpuscular Volume 85.2 FL (87-102); Mean Platelet Volume 11.3 FL (9.6-12.0); Monocytes % 13.6 % (1.7-12.7); Neutrophils % 73.9 % (38.7-73.9); Platelet Count 350 T/CUMM (130-400); Red Cell Distribution Width 21.3 % (9.3-17.3); White Blood Count 11.1 T/CUMM (4-12)
[2020-08-22 05:39] LABS: Calcium 8.6 MG/DL (8.5-10.1); Osmolality,Calculated 267.2 MOS/KG (273-304)
[2020-08-22 05:47] LABS: Blood, Urine Negative (Negative); Glucose,Urine (UA) Negative (Negative); Hyaline Casts,Urine 1 /LPF (0-3); Ketones,Urine 5 mg/dL (Negative); Mucus,Urine Occasional /LPF (Occasional); Nitrite,Urine Negative (Negative); Protein,Urine Negative; RBC,Urine 2 /HPF (0-4); Squamous Epithelial Cell,Urine Occasional /HPF (0-10); Urine Appearance CLEAR (Clear); Urine Color Amber (Yellow); Urine Specific Gravity 1.021 (1.001-1.035); WBC,Urine 1 /HPF (0-6)
[2020-08-22 05:48] LABS: Bilirubin,Urine Small mg/dL (Negative)
[2020-08-22] MEDS ORDERED: PANTOPRAZOLE 40 MG TABLET PO SCH (09:00)
[2020-08-22] MEDS ORDERED: fentaNYL 50 MCG/HR PATCH TRANSDERM SCH (09:10)
[2020-08-22] MEDS: SULFAMETHOX/TRIMETHOPRIM 800-160 MG TABLET PO SCH ×2 (09:22→21:46)
[2020-08-22] MEDS: SPIRONOLACTONE 25 MG TABLET PO SCH ×2 (09:22→21:47)
[2020-08-22] MEDS: FUROSEMIDE 40 MG TABLET PO SCH (09:22)
[2020-08-22] MEDS: LACTULOSE 20 GM/30 ML UDCUP PO SCH ×2 (09:30→21:47)
[2020-08-22] MEDS ORDERED: ALBUMIN 25% 50 GM in PREMIX 1 EACH IV ONE (12:56)
[2020-08-22] MEDS: SODIUM CHLORIDE 0.9% 1,000 ML IV SCH (18:08)
[2020-08-22] MEDS: ENOXAPARIN 40 MG/0.4 ML SYRINGE SUBCUT SCH (18:08)
[2020-08-23 05:16] LABS: Basophils % 0.3 % (0.0-0.8); Eosinophils % 0.1 % (0.00-10.9); Hematocrit 26.2 VOL% (35.7-47.0); Hemoglobin 8.6 GM/DL (12.0-16.0); Immature Granulocytes % 1.3 %; Immature Granulocytes Absolute 0.19 #; Lymphocytes # 1.1 10*3/uL (1.4-4.0); Lymphocytes % 7.4 % (21.3-54.2); Mean Corpuscular HGB Conc 32.8 GM/DL (32-36); Mean Corpuscular Volume 87.6 FL (87-102); Monocytes % 11.2 % (1.7-12.7); Neutrophils % 79.7 % (38.7-73.9); Platelet Count 317 T/CUMM (130-400); Red Blood Count 2.99 MC/CUMM (3.8-5.5); Red Cell Distribution Width 22.2 % (9.3-17.3); White Blood Count 14.7 T/CUMM (4-12)
[2020-08-23 05:46] LABS: Albumin 2.9 G/DL (3.4-5.0); Calcium 8.7 MG/DL (8.5-10.1); Osmolality,Calculated 274.8 MOS/KG (273-304); Total Protein 6.3 G/DL (6.4-8.3)
[2020-08-23 05:54] LABS: Hypochromasia 2+; Platelet Estimate Normal; Target Cells Few
[2020-08-23] MEDS: HYDROmorphone 2 MG/1 ML VIAL IV PRN (06:00)
[2020-08-23] MEDS ORDERED: TUBERCULIN SKIN TEST 0.1 ML SYRINGE INTRADERM ONE (08:40)
[2020-08-23] MEDS ORDERED: ALBUMIN 25% 50 GM in PREMIX 1 EACH IV ONE (09:21)
[2020-08-23] MEDS: fentaNYL 75 MCG/HR PATCH TRANSDERM SCH ×2 (09:38→09:39)
[2020-08-23] MEDS: FUROSEMIDE 40 MG TABLET PO SCH (09:39)
[2020-08-23] MEDS: SPIRONOLACTONE 25 MG TABLET PO SCH ×2 (09:39→21:14)
[2020-08-23] MEDS: LACTULOSE 20 GM/30 ML UDCUP PO SCH ×2 (09:39→21:14)
[2020-08-23] MEDS ORDERED: FUROSEMIDE 40 MG/4 ML VIAL IV ONE (10:39)
[2020-08-23 13:21] LABS: Neutrophils,Peritoneal Fluid 85 %; RBC,Peritoneal Fluid 9000 T/CUMM
[2020-08-23] MEDS: cefTAZidime 2,000 MG in SYRINGE 1 EACH IV SCH (16:49)
[2020-08-23] MEDS: ENOXAPARIN 40 MG/0.4 ML SYRINGE SUBCUT SCH (17:49)
[2020-08-23] MEDS: oxyCODONE/ACETAMINOPHEN 5-325 MG TABLET PO PRN (21:14)
[2020-08-24] MEDS: cefTAZidime 2,000 MG in SYRINGE 1 EACH IV SCH ×4 (00:50→23:24)
[2020-08-24] MEDS: oxyCODONE/ACETAMINOPHEN 5-325 MG TABLET PO PRN ×2 (02:56→19:01)
[2020-08-24 06:16] LABS: Basophils % 0.2 % (0.0-0.8); Eosinophils % 0.2 % (0.00-10.9); Hematocrit 24.2 VOL% (35.7-47.0); Hemoglobin 8.2 GM/DL (12.0-16.0); Immature Granulocytes % 2.3 %; Immature Granulocytes Absolute 0.31 #; Lymphocytes # 1.2 10*3/uL (1.4-4.0); Lymphocytes % 8.7 % (21.3-54.2); Mean Corpuscular HGB Conc 33.9 GM/DL (32-36); Mean Corpuscular Volume 83.7 FL (87-102); Mean Platelet Volume 10.7 FL (9.6-12.0); Monocytes % 11.8 % (1.7-12.7); Neutrophils % 76.8 % (38.7-73.9); Platelet Count 287 T/CUMM (130-400); Red Blood Count 2.89 MC/CUMM (3.8-5.5); Red Cell Distribution Width 22.2 % (9.3-17.3); White Blood Count 13.6 T/CUMM (4-12)
[2020-08-24 06:35] LABS: Calcium 9.1 MG/DL (8.5-10.1); Osmolality,Calculated 271.1 MOS/KG (273-304)
[2020-08-24 06:46] LABS: Hypochromasia 1+; Microcytosis Slight; Platelet Estimate Normal; Target Cells Few
[2020-08-24] MEDS: FUROSEMIDE 40 MG TABLET PO SCH (09:13)
[2020-08-24] MEDS: SPIRONOLACTONE 25 MG TABLET PO SCH ×2 (09:13→20:50)
[2020-08-24] MEDS: LACTULOSE 20 GM/30 ML UDCUP PO SCH ×2 (09:13→20:50)
[2020-08-24] MEDS: ENOXAPARIN 40 MG/0.4 ML SYRINGE SUBCUT SCH (16:00)
[2020-08-25 05:54] LABS: Basophils % 0.1 % (0.0-0.8); Eosinophils % 0.1 % (0.00-10.9); Hematocrit 23.4 VOL% (35.7-47.0); Hemoglobin 8.1 GM/DL (12.0-16.0); Immature Granulocytes % 1.9 %; Immature Granulocytes Absolute 0.25 #; Lymphocytes # 1.3 10*3/uL (1.4-4.0); Lymphocytes % 9.4 % (21.3-54.2); Mean Corpuscular HGB Conc 34.6 GM/DL (32-36); Mean Corpuscular Volume 82.7 FL (87-102); Monocytes % 10.5 % (1.7-12.7); Platelet Count 296 T/CUMM (130-400); Red Blood Count 2.83 MC/CUMM (3.8-5.5); White Blood Count 13.4 T/CUMM (4-12)
[2020-08-25 06:21] LABS: Albumin 2.7 G/DL (3.4-5.0); Bilirubin,Total 8.2 MG/DL (0.2-1.0); Calcium 9.2 MG/DL (8.5-10.1); Osmolality,Calculated 267.4 MOS/KG (273-304); Total Protein 5.9 G/DL (6.4-8.3)
[2020-08-25 06:35] LABS: Anisocytosis 1+; Hypochromasia 1+
[2020-08-25 06:36] LABS: Platelet Estimate Normal; Target Cells 1+
[2020-08-25] MEDS: SPIRONOLACTONE 25 MG TABLET PO SCH ×2 (10:21→21:11)
[2020-08-25] MEDS: FUROSEMIDE 40 MG TABLET PO SCH (10:21)
[2020-08-25] MEDS: cefTAZidime 2,000 MG in SYRINGE 1 EACH IV SCH ×2 (10:25→17:47)
[2020-08-25] MEDS: LACTULOSE 20 GM/30 ML UDCUP PO SCH ×2 (10:29→21:10)
[2020-08-25] MEDS ORDERED: POTASSIUM CHLORIDE RIDER 10 MEQ in PREMIX 1 EACH IV PRN (12:09)
[2020-08-25] MEDS ORDERED: POTASSIUM CHLORIDE 20 MEQ TABLET PO PRN (12:09)
[2020-08-25] MEDS: oxyCODONE/ACETAMINOPHEN 5-325 MG TABLET PO PRN ×2 (12:43→21:11)
[2020-08-25] MEDS ORDERED: POTASSIUM CHLORIDE 20 MEQ TABLET PO ONE (14:00)
[2020-08-25] MEDS ORDERED: ALBUMIN 25% 50 GM in PREMIX 1 EACH IV ONE (15:00)
[2020-08-25] MEDS: ENOXAPARIN 40 MG/0.4 ML SYRINGE SUBCUT SCH (17:31)
[2020-08-26] MEDS: cefTAZidime 2,000 MG in SYRINGE 1 EACH IV SCH ×3 (00:49→17:13)
[2020-08-26 03:51] LABS: Basophils % 0.3 % (0.0-0.8); Eosinophils % 0.2 % (0.00-10.9); Hematocrit 24.3 VOL% (35.7-47.0); Hemoglobin 8.2 GM/DL (12.0-16.0); Immature Granulocytes % 1.7 %; Immature Granulocytes Absolute 0.22 #; Lymphocytes # 1.3 10*3/uL (1.4-4.0); Mean Corpuscular HGB Conc 33.7 GM/DL (32-36); Mean Corpuscular Volume 83.2 FL (87-102); Mean Platelet Volume 11.4 FL (9.6-12.0); Monocytes % 10.7 % (1.7-12.7); Neutrophils % 77.1 % (38.7-73.9); Platelet Count 306 T/CUMM (130-400); Red Blood Count 2.92 MC/CUMM (3.8-5.5); Red Cell Distribution Width 23.8 % (9.3-17.3); White Blood Count 12.7 T/CUMM (4-12)
[2020-08-26 04:04] LABS: Calcium 9.4 MG/DL (8.5-10.1); Osmolality,Calculated 271.1 MOS/KG (273-304)
[2020-08-26 04:46] LABS: Hypochromasia 1+; Platelet Estimate Adequate; Target Cells Few
[2020-08-26] MEDS: LACTULOSE 20 GM/30 ML UDCUP PO SCH ×2 (08:35→21:22)
[2020-08-26] MEDS: SPIRONOLACTONE 25 MG TABLET PO SCH ×2 (08:36→21:23)
[2020-08-26] MEDS: FUROSEMIDE 40 MG TABLET PO SCH (08:36)
[2020-08-26] MEDS: fentaNYL 75 MCG/HR PATCH TRANSDERM SCH (08:36)
[2020-08-26] MEDS ORDERED: diphenhydrAMINE CAP 25 MG CAPSULE PO PRN (13:07)
[2020-08-26] MEDS: oxyCODONE/ACETAMINOPHEN 5-325 MG TABLET PO PRN ×2 (16:08→21:23)
[2020-08-26] MEDS: ENOXAPARIN 40 MG/0.4 ML SYRINGE SUBCUT SCH (17:13)
[2020-08-27] MEDS: cefTAZidime 2,000 MG in SYRINGE 1 EACH IV SCH ×4 (00:33→23:28)
[2020-08-27 06:51] LABS: Basophils % 0.1 % (0.0-0.8); Eosinophils % 0.1 % (0.00-10.9); Hematocrit 24.5 VOL% (35.7-47.0); Hemoglobin 8.5 GM/DL (12.0-16.0); Immature Granulocytes % 1.9 %; Immature Granulocytes Absolute 0.25 #; Lymphocytes # 1.1 10*3/uL (1.4-4.0); Lymphocytes % 8.3 % (21.3-54.2); Mean Corpuscular HGB Conc 34.7 GM/DL (32-36); Mean Corpuscular Volume 83.9 FL (87-102); Mean Platelet Volume 11.6 FL (9.6-12.0); Monocytes % 10.4 % (1.7-12.7); Neutrophils % 79.2 % (38.7-73.9); Platelet Count 344 T/CUMM (130-400); Red Blood Count 2.92 MC/CUMM (3.8-5.5); Red Cell Distribution Width 25.2 % (9.3-17.3); White Blood Count 13.5 T/CUMM (4-12)
[2020-08-27 07:16] LABS: Hypochromasia Slight; Microcytosis Slight; Platelet Estimate Normal; Target Cells Few
[2020-08-27 07:23] LABS: Albumin 2.6 G/DL (3.4-5.0); Bilirubin,Direct 8.76 MG/DL (0.0-0.20); Bilirubin,Indirect 2.1 MG/DL (0.0-1.0); Bilirubin,Total 10.9 MG/DL (0.2-1.0); Calcium 9.2 MG/DL (8.5-10.1); Total Protein 5.7 G/DL (6.4-8.3)
[2020-08-27] MEDS: FUROSEMIDE 40 MG TABLET PO SCH ×2 (08:38→11:06)
[2020-08-27] MEDS: LACTULOSE 20 GM/30 ML UDCUP PO SCH ×3 (08:38→20:34)
[2020-08-27] MEDS: SPIRONOLACTONE 25 MG TABLET PO SCH ×3 (08:38→20:34)
[2020-08-27] MEDS: oxyCODONE/ACETAMINOPHEN 5-325 MG TABLET PO PRN (16:52)
[2020-08-27] MEDS: ENOXAPARIN 40 MG/0.4 ML SYRINGE SUBCUT SCH (17:04)
[2020-08-28] MEDS: cefTAZidime 2,000 MG in SYRINGE 1 EACH IV SCH (08:41)
[2020-08-28] MEDS: SPIRONOLACTONE 25 MG TABLET PO SCH (08:42)
[2020-08-28] MEDS: FUROSEMIDE 40 MG TABLET PO SCH (08:42)
[2020-08-28] MEDS: LACTULOSE 20 GM/30 ML UDCUP PO SCH (08:42)
[2020-08-28 12:58] VITALS: BP 149/71
[2020-08-28] MEDS ORDERED: CEFUROXIME 500 MG TABLET PO SCH (21:00)
== END 2020-08-28 13:52 | DRG 435 ==
LOC: EDBD → EDUNIT# → N.ED 14:03 → N.EDINP 14:03 → SUATTDRO 16:57 → N.4E 18:08
PROVIDERS: ADMIT Internal Medicine; ATTEND Internal Medicine